=== PATIENT | male | born 1995 | race Hispanic/Latino ===

== ENCOUNTER 2022-07-22 07:12 | Emergency (ER) | payer OTHER, SELFPAY ==
[2022-07-22] MEDS ORDERED: Ketorolac Tromethamine 30 MG/ML VIAL ONE (07:45)
[2022-07-22] MEDS ORDERED: Acetaminophen 500 MG TAB ONE (07:45)
== END 2022-07-22 07:49 | disposition home or self-care (01) ==
LOC: ERS 07:12
DX: M54.50 Low back pain, unspecified (principal)
CPT/HCPCS: 96372; 99284; J1885